=== PATIENT | male | born 1980 | race Caucasian/White ===

== ENCOUNTER 2017-09-15 17:54 | Observation (INO) | payer BC ==
[~2017-09-15] VITALS: Ht 177.8 cm; Wt 122.9 kg
[2017-09-15] MEDS ORDERED: CLINDAMYCIN PHOS 900MG/ D5W 50 50 ML IV STA (18:31)
[2017-09-15] MEDS ORDERED: IBUPROFEN 600 MG TAB PO STA (18:31)
[2017-09-15] MEDS ORDERED: SODIUM CHLORIDE 0.9% 1000ML 1,000 ML IV STA (18:31)
[2017-09-15] MEDS ORDERED: DEXAMETHASONE SOD PHOS 10 MG/1 ML VIAL IV ONE (18:45)
[2017-09-15] MEDS ORDERED: ACETAMINOPHEN/CODEINE ELIX 120-12 MG/5 ML UDC PO ONE (18:45)
[2017-09-15 19:13] LABS: BASOPHILS % 0.2 % (0.0-1.0); EOSINOPHILS % 0.3 % (0.0-6.0); HEMATOCRIT 44.4 % (38.2-49.6); HEMOGLOBIN 14.9 g/dL (14.0-18.0); LYMPHOCYTES # (AUTO) 1.7 (1.0-3.2); MEAN CORPUSCULAR HGB CONC 33.6 g/dL (31-35); MEAN CORPUSCULAR VOLUME 89.3 fL (81-99); MONOCYTES # (AUTO) 1.1 (0.2-0.8); MONOCYTES % 8.4 % (4.4-11.3); NEUTROPHILS # (AUTO) 9.8 (2.1-6.9); NEUTROPHILS % 77.5 % (38.7-80.0); PLATELET COUNT 231 x10e3/uL (140-360); RED BLOOD COUNT 4.97 x10e6/uL (4.3-5.7); RED CELL DISTRIBUTION WIDTH 11.6 % (11.7-14.4)
[2017-09-15 19:37] LABS: ALANINE AMINOTRANSFERASE 17 IU/L (0-55); ALBUMIN 3.9 g/dL (3.5-5.0); ALBUMIN/GLOBULIN RATIO 0.9 (0.8-2.0); ALKALINE PHOSPHATASE 79 IU/L (40-150); ANION GAP 14.9 mmol/L (8-16); BLOOD UREA NITROGEN 9 mg/dL (7-26); BUN/CREATININE RATIO 11 (6-25); CARBON DIOXIDE 25 mmol/L (22-29); CHLORIDE 105 mmol/L (98-107); CREATININE, SERUM 0.84 mg/dL (0.72-1.25); EST GLOMERULAR FILTRATION RATE > 60 ML/MIN (60-); GLUCOSE 100 mg/dL (74-118); POTASSIUM 3.9 mmol/L (3.5-5.1); SODIUM 141 mmol/L (136-145)
--- NOTE | 2017-09-15 20:51 | Diagnostic Imaging Report ---
History: Sore throat, rule out abscess. Comparison studies: None Technique: Axial, coronal and sagittal images from the skull base to the thoracic inlet. Coronal and sagittal images reconstructed from the axial data. Intravenous contrast: 100 cc of Isovue 370. Findings: Soft tissues: Marked right palatine tonsillar soft tissue prominence with heterogeneous enhancement, with associated ill-defined, peripheral rim enhancing fluid collection within the right palatine tonsil that approximately measures 2.4 x 1.2 x 1.4 cm (SAT) that represents soft tissue abscess. Moderate to severe surrounding inflammation which extends laterally to the peritonsillar region, superiorly with mild soft tissue prominence in right lateral aspect of nasopharynx and inferiorly extends to the vallecula and aryepiglottic folds. This results in moderate to severe narrowing of the oropharyngeal airway. Lymph nodes: Multiple enlarged right lateral cervical lymph nodes, particularly the largest in right level 2A approximately measures 2.6 cm in long axis, right level 1B largest measures 1.4 cm in long axis with multiple other prominent and enlarged lymph nodes particularly in right level 3, level 5A and 5B, left level 2A are likely reactive. Vessels: Arteries and veins are patent. Glands (thyroid, parotid and submandibular): Normal in size and symmetric. No masses. Orbits: No abnormalities. Paranasal sinuses: Clear. Temporal bones: No abnormalities. Skull base and facial bones: Intact. Cervical spine: Mild degenerative disc disease at C5-C6 with endplate sclerosis. No significant canal or foraminal stenosis. Reversal of normal cervical lordosis may be positional. IMPRESSION: 1. Marked right palatine tonsillar pharyngitis with ill-defined 2.4 cm soft tissue abscess and surrounding inflammation, results in moderate to severe narrowing of the oropharyngeal airway. Given history of recent sore throat and strep positive findings represents infectious/inflammatory process rather than underlying soft tissue neoplasm. 2. Multiple bilateral (right more than left) nonnecrotic, noncalcified lateral cervical lymphadenopathy are likely reactive. Signed by: Dr. Rachelle Peters M.D. on 09/15/2017 8:47 PM
[2017-09-15] MEDS ORDERED: CEFTRIAXONE SOD 1 GM VIAL IV ONE (21:45)
[2017-09-15] MEDS ORDERED: ACETAMINOPHEN 325 MG TAB PO PRN (22:00)
[2017-09-15] MEDS ORDERED: ONDANSETRON HCL INJ 2 MG/ML VIAL IV PRN (22:00)
[2017-09-15] MEDS ORDERED: HYDROMORPHONE 1MG/1ML INJ IV PRN (22:00)
[2017-09-15] MEDS: SODIUM CHLORIDE 0.9% 1000ML 1,000 ML IV SCH (23:06)
[2017-09-16] VITALS (9 sets, daily range): BP systolic 95–149; BP diastolic 64–87
[2017-09-16] MEDS ORDERED: CLINDAMYCIN PHOS 900MG/ D5W 50 50 ML IV SCH ×2 (03:00)
[2017-09-16] MEDS ORDERED: IOPAMIDOL 370 MG/ML 200 ML INFUS..BTL INJ ONE (05:46)
[2017-09-16] MEDS ORDERED: SODIUM CHLORIDE 0.9% 50ML 50 ML ONE (05:46)
--- NOTE | 2017-09-16 08:19 | Consultation ---
DATE OF CONSULTATION: September 16, 2017 HISTORY OF PRESENT ILLNESS: I was kindly asked to see this 37-year-old man for evaluation of right peritonsillar space abscess. He has no previous history of clinically significant tonsillar abnormalities, and began with a sore throat approximately 3 days ago. The pain then localized to the right side and became progressively worse. He presented to the emergency department for evaluation and treatment. He was begun on IV antibiotics and IV steroids, and reports since initiation of the IV therapy that his symptoms have nearly resolved. PAST MEDICAL HISTORY/PAST SURGICAL HISTORY: Reviewed in the chart, and is otherwise noncontributory. PHYSICAL EXAMINATION HEENT: The tympanic membranes and external auditory canals are normal. Nasal examination is unremarkable. There is edema of the right anterior tonsillar pillar. There is no tonsillar exudate. The uvula is midline. There is right-sided shoddy cervical adenopathy. A 19-gauge needle was used to aspirate the right peritonsillar space, and 3 mL of pus was obtained. ASSESSMENT: Right peritonsillar space abscess, status post 19-gauge needle aspiration. PLAN 1. Continuation of IV antibiotic and steroid therapy. 2. Observation for possible reaccumulation of right peritonsillar space abscess. Job#: [id number]
[2017-09-16 08:31] LABS: ALANINE AMINOTRANSFERASE 16 IU/L (0-55); ALBUMIN 3.4 g/dL (3.5-5.0); ALBUMIN/GLOBULIN RATIO 0.8 (0.8-2.0); ALKALINE PHOSPHATASE 74 IU/L (40-150); BLOOD UREA NITROGEN 14 mg/dL (7-26); BUN/CREATININE RATIO 18 (6-25); CALCIUM 9.5 mg/dL (8.4-10.2); CARBON DIOXIDE 23 mmol/L (22-29); CHLORIDE 107 mmol/L (98-107); CREATININE, SERUM 0.76 mg/dL (0.72-1.25); EST GLOMERULAR FILTRATION RATE > 60 ML/MIN (60-); GLUCOSE 151 mg/dL (74-118); SODIUM 139 mmol/L (136-145)
[2017-09-16] MEDS: SODIUM CHLORIDE 0.9% 1000ML 1,000 ML IV SCH ×2 (08:35→17:39)
[2017-09-16 08:40] LABS: BASOPHILS % 0.2 % (0.0-1.0); HEMATOCRIT 43.2 % (38.2-49.6); HEMOGLOBIN 14.6 g/dL (14.0-18.0); LYMPHOCYTES # (AUTO) 0.9 (1.0-3.2); LYMPHOCYTES % 9.5 % (18.0-39.1); MEAN CORPUSCULAR HEMOGLOBIN 30.4 pg (28-32); MEAN CORPUSCULAR HGB CONC 33.8 g/dL (31-35); MEAN CORPUSCULAR VOLUME 89.8 fL (81-99); MONOCYTES # (AUTO) 0.2 (0.2-0.8); MONOCYTES % 1.6 % (4.4-11.3); NEUTROPHILS # (AUTO) 8.6 (2.1-6.9); NEUTROPHILS % 88.1 % (38.7-80.0); PLATELET COUNT 234 x10e3/uL (140-360); RED BLOOD COUNT 4.81 x10e6/uL (4.3-5.7); RED CELL DISTRIBUTION WIDTH 11.4 % (11.7-14.4)
[2017-09-16] MEDS ORDERED: DEXAMETHASONE SOD PHOS INJ 4 MG/ML VIAL IV SCH (09:00)
[2017-09-16] MEDS: CEFTRIAXONE SOD 1 GM VIAL IV SCH (09:39)
[2017-09-16] MEDS: CLINDAMYCIN 600MG/D5W 50ML 50 ML IV SCH ×2 (13:03→21:58)
[2017-09-16] MEDS: DEXAMETHASONE SOD PHOS 10 MG/1 ML VIAL IV SCH ×2 (13:03→21:58)
[2017-09-16] MEDS ORDERED: CEFTRIAXONE SOD 1 GM VIAL IV SCH (22:00)
[2017-09-17] VITALS: BP 122/72
[2017-09-17 04:00] VITALS: BP 125/83
[2017-09-17] MEDS: SODIUM CHLORIDE 0.9% 1000ML 1,000 ML IV SCH ×2 (04:04→05:58)
[2017-09-17] MEDS: DEXAMETHASONE SOD PHOS 10 MG/1 ML VIAL IV SCH (05:30)
[2017-09-17] MEDS: CLINDAMYCIN 600MG/D5W 50ML 50 ML IV SCH (05:30)
[2017-09-17 06:48] LABS: BASOPHILS % 0.2 % (0.0-1.0); HEMATOCRIT 39.6 % (38.2-49.6); HEMOGLOBIN 13.5 g/dL (14.0-18.0); LYMPHOCYTES # (AUTO) 1.2 (1.0-3.2); LYMPHOCYTES % 7.3 % (18.0-39.1); MEAN CORPUSCULAR HEMOGLOBIN 30.3 pg (28-32); MEAN CORPUSCULAR HGB CONC 34.1 g/dL (31-35); MEAN CORPUSCULAR VOLUME 88.8 fL (81-99); MONOCYTES # (AUTO) 0.6 (0.2-0.8); MONOCYTES % 3.8 % (4.4-11.3); NEUTROPHILS # (AUTO) 14.5 (2.1-6.9); PLATELET COUNT 260 x10e3/uL (140-360); RED BLOOD COUNT 4.46 x10e6/uL (4.3-5.7); RED CELL DISTRIBUTION WIDTH 11.4 % (11.7-14.4)
[2017-09-17 07:22] LABS: BLOOD UREA NITROGEN 17 mg/dL (7-26); BUN/CREATININE RATIO 24 (6-25); CALCIUM 8.9 mg/dL (8.4-10.2); CARBON DIOXIDE 22 mmol/L (22-29); CHLORIDE 111 mmol/L (98-107); CREATININE, SERUM 0.71 mg/dL (0.72-1.25); EST GLOMERULAR FILTRATION RATE > 60 ML/MIN (60-); GLUCOSE 166 mg/dL (74-118); SODIUM 141 mmol/L (136-145)
[2017-09-17 08:32] VITALS: BP 127/71
[2017-09-17] MEDS: CEFTRIAXONE SOD 1 GM VIAL IV SCH (09:42)
[2017-09-17 10:07] VITALS: BP 127/71
[2017-09-17 12:31] VITALS: BP 142/67
== END 2017-09-17 12:49 | disposition home or self-care (01) ==
LOC: ER 17:54 → ERHOLD 22:29 → IMCU 09-16 00:43
DX: J36 Peritonsillar abscess (principal); J02.0 Streptococcal pharyngitis; Z88.0 Allergy status to penicillin
CPT/HCPCS: 36415 ×3; 42700; 70491; 80048; 80053 ×2; 85025 ×3; 99284; G0378 ×3; J0696 ×3; J1100 ×4; J7030 ×3; Q9967